=== PATIENT | female | born 1995 | race Caucasian/White ===

== ENCOUNTER 2017-07-07 05:15 | Emergency (ER) | payer MEDICAID ==
[~2017-07-07 05:15] MED LIST: PROV10TA PO
[2017-07-07 05:16] VITALS: BP 125/91; PULSE 111; RESP 20; TEMP 98.5; O2SAT 98
[2017-07-07] MEDS ORDERED: SODIUM CHLOR 0.9% 1000 ML INJ 1,000 ML IV ONE (05:28)
[2017-07-07] MEDS ORDERED: ONDANSETRON HCL 4 MG/2 ML VIAL IV ONE (05:30)
[2017-07-07] MEDS ORDERED: IBUPROFEN 600 MG TAB PO ONE (05:30)
--- NOTE | 2017-07-07 05:32 | PD ---
HPI Chief Complaint: General Weakness Time Seen by Provider: 05:28 Travel History International Travel<30 days: No Contact w/Intl Traveler<30days: No Traveled to known affect area: No History of Present Illness HPI 21-year-old female patient presents to the ER today with one-day history of nausea, vomiting, body aches, coughing, back pains, and fevers. She denies any diarrhea, shortness of breath, or other symptoms. She does not know any sick contacts. She denies any IV drug use or recent travel. Modifying Factors: None Associated Signs & Symptoms: Fevers, body aches, back pain, coughing, vomiting Risk Factors: None PFSH Past Medical History Asthma: Yes Developmental Delay: No Diminished Hearing: No Immunizations Current: Yes ?: Not LMP: 06/10/17 : 0 Past Surgical History Appendectomy: Yes Social History Alcohol Use: No Tobacco Use: No Substance Use: No Allergies-Medications (Allergen,Severity, Reaction): Coded Allergies: citric acid (Unverified Allergy, Severe, 06/24/17) diatrizoate meglumine (Unverified Allergy, Intermediate, 06/24/17) FEELS DIZZY AND VOMITS gadobenic acid (Unverified Allergy, Intermediate, 06/24/17) FEELS DIZZY AND VOMITS gadodiamide (Unverified Allergy, Intermediate, 06/24/17) FEELS DIZZY AND VOMITS gadoteridol (Unverified Allergy, Intermediate, 06/24/17) FEELS DIZZY AND VOMITS iodixanol (Unverified Allergy, Intermediate, 06/24/17) FEELS DIZZY AND VOMITS iohexol (Unverified Allergy, Intermediate, 06/24/17) FEELS DIZZY AND VOMITS Reported Meds & Prescriptions Reported Meds & Active Scripts Active Review of Systems Except as stated in HPI: all other systems reviewed are Neg Physical Exam Narrative GENERAL: Well-developed obese young female patient currently in moderate distress. Awake and oriented 3. SKIN: Focused skin assessment warm/dry. HEAD: Atraumatic. Normocephalic. EYES: Pupils equal and round. No scleral icterus. No injection or drainage. ENT: No nasal bleeding or discharge. Mucous membranes pink and moist. NECK: Trachea midline. No JVD. CARDIOVASCULAR: Regular rate and rhythm. No murmur appreciated. RESPIRATORY: No accessory muscle use. Clear to auscultation. Breath sounds equal bilaterally. GASTROINTESTINAL: Abdomen soft, non-tender, nondistended. Hepatic and splenic margins not palpable. MUSCULOSKELETAL: No obvious deformities. No clubbing. No cyanosis. No edema. NEUROLOGICAL: Awake and alert. No obvious cranial nerve deficits. Motor grossly within normal limits. Normal speech. PSYCHIATRIC: Appropriate mood and affect; insight and judgment normal. Data Data Last Documented VS Vital Signs Date Time Temp Pulse Resp B/P (MAP) Pulse Ox O2 Delivery O2 Flow Rate FiO2 07/07/17 05:36 98 20 117/56 (76) 99 Room Air 07/07/17 05:16 98.5 Orders Orders Complete Blood Count With Diff (07/07/17 05:28) Comprehensive Metabolic Panel (07/07/17 05:28) Lactic Acid Sepsis Protocol (07/07/17 05:28) Urinalysis - C+S If Indicated (07/07/17 05:28) Influenzae A/B Antigen (07/07/17 05:28) Blood Culture (07/07/17 05:28) Blood Glucose (07/07/17 05:28) Ecg Monitoring (07/07/17 05:28) Iv Access Insert/Monitor (07/07/17 05:28) Oximetry (07/07/17 05:28) Oxygen Administration (07/07/17 05:28) Ibuprofen (Motrin) (07/07/17 05:30) Ondansetron Inj (Zofran Inj) (07/07/17 05:30) Sodium Chlor 0.9% 1000 Ml Inj (Ns 1000 M (07/07/17 05:28) Creatine Kinase (Cpk) (07/07/17 05:28) C-Reactive Protein (Crp) (07/07/17 05:28) Westergren Sedimentation Rate (07/07/17 05:28) Ed Urine Pregnancytest Poc (07/07/17 05:28) Chest, Single Ap (07/07/17 05:32) Labs Laboratory Tests Test 07/07/17 05:35 07/07/17 06:30 White Blood Count 9.6 TH/MM3 Red Blood Count 4.65 MIL/MM3 Hemoglobin 12.0 GM/DL Hematocrit 36.2 % Mean Corpuscular Volume 77.9 FL Mean Corpuscular Hemoglobin 25.8 PG Mean Corpuscular Hemoglobin Concent 33.2 % Red Cell Distribution Width 14.8 % Platelet Count 226 TH/MM3 Mean Platelet Volume 8.0 FL Neutrophils (%) (Auto) 76.2 % Lymphocytes (%) (Auto) 11.2 % Monocytes (%) (Auto) 8.7 % Eosinophils (%) (Auto) 3.2 % Basophils (%) (Auto) 0.7 % Neutrophils # (Auto) 7.3 TH/MM3 Lymphocytes # (Auto) 1.1 TH/MM3 Monocytes # (Auto) 0.8 TH/MM3 Eosinophils # (Auto) 0.3 TH/MM3 Basophils # (Auto) 0.1 TH/MM3 CBC Comment DIFF FINAL Differential Comment Erythrocyte Sedimentation Rate 32 mm/hr Blood Urea Nitrogen 6 MG/DL Creatinine 0.78 MG/DL Random Glucose 84 MG/DL Total Protein 7.6 GM/DL Albumin 3.5 GM/DL Calcium Level 8.6 MG/DL Alkaline Phosphatase 62 U/L Aspartate Amino Transf (AST/SGOT) 18 U/L Alanine Aminotransferase (ALT/SGPT) 16 U/L Total Bilirubin 0.6 MG/DL Sodium Level 136 MEQ/L Potassium Level 4.0 MEQ/L Chloride Level 106 MEQ/L Carbon Dioxide Level 22.7 MEQ/L Anion Gap 7 MEQ/L Estimat Glomerular Filtration Rate 94 ML/MIN Lactic Acid Level 0.8 mmol/L Total Creatine Kinase 125 U/L C-Reactive Protein 1.59 MG/DL [facility] Medical Decision Making Medical Screen Exam Complete: Yes Emergency Medical Condition: Yes Medical Record Reviewed: Yes Interpretation(s) Laboratory Tests Test 07/07/17 05:35 07/07/17 06:30 Mean Corpuscular Volume 77.9 FL (80.0-100.0) Mean Corpuscular Hemoglobin 25.8 PG (27.0-34.0) Neutrophils (%) (Auto) 76.2 % (16.0-70.0) Monocytes (%) (Auto) 8.7 % (0.0-8.0) Erythrocyte Sedimentation Rate 32 mm/hr (0-20) Blood Urea Nitrogen 6 MG/DL (7-18) C-Reactive Protein 1.59 MG/DL (0.00-0.30) Differential Diagnosis Fevers, nausea, vomiting, body aches, coughviral syndrome versus influenza versus rhabdomyolysis versus dehydration versus metabolic issues versus sepsis Narrative Course Lab work did not show significant white blood cell count. Her lactate is normal. Patient is afebrile the ER. Influenza test was negative. Chest x-ray was unremarkable. And at this point, symptoms sound more like a viral syndrome. My plan would be to release her with follow-up to primary care doctor with symptomatic relief. Return for worsening in symptoms as necessary. The plan has been discussed with her and she states understanding. Diagnosis Primary Impression: Viral syndrome Med/Other Pt SpecificInfo: Prescription(s) given Scripts Ondansetron Odt (Zofran Odt) 4 Mg Tab 4 MG SL Q6HR Y for Nausea/Vomiting, #7 TAB 0 Refills Prov: Kevin Park MD 07/07/17 Ibuprofen (Motrin Ib) 200 Mg Tablet 600 MG PO QID Y for PAIN SCALE 1 TO 10, #20 Prov: Kevin Park MD 07/07/17 Disposition: 01 DISCHARGE HOME Condition: Stable Kevin Park MD Jul 07, 2017 05:32
[2017-07-07 05:36] VITALS: BP 117/56; PULSE 98; RESP 20; O2SAT 99
--- NOTE | 2017-07-07 06:03 | RADRPT ---
EXAM DATE/TIME: 07/07/2017 05:48 [facility] COMPARISON: CHEST SINGLE AP, October 12, 2014, 11:39. INDICATIONS : Chest pain. MEDICAL HISTORY : None. SURGICAL HISTORY : None. ENCOUNTER: Initial ACUITY: 1 day PAIN SCORE: 0/10 LOCATION: Bilateral chest FINDINGS: Portable AP view of the chest demonstrates a normal-sized cardiac silhouette. No effusion, consolidat ion, or pneumothorax is visualized. The bones and soft tissues demonstrate no acute abnormality. Lung s are underinflated. CONCLUSION: No acute cardiopulmonary abnormality is identified. Titus Zuleta MD on July 07, 2017 at 6:01 Board Certified Radiologist. This report was verified electronically.
[2017-07-07 06:04] LABS: AUTOMATED NEUTROPHIL # 7.3 TH/MM3 (1.8-7.7); BASOPHIL # 0.1 TH/MM3 (0-0.2); BASOPHIL % 0.7 % (0.0-2.0); EOSINOPHIL # 0.3 TH/MM3 (0-0.4); EOSINOPHIL % 3.2 % (0.0-4.0); HEMATOCRIT 36.2 % (35.0-46.0); HEMO FLAGS DIFF FINAL; LYMPH % 11.2 % (9.0-44.0); LYMPHOCYTE # 1.1 TH/MM3 (1.0-4.8); MEAN CELL VOLUME 77.9 FL (80.0-100.0); MEAN CORPUSCULAR HEMOGLOBIN 25.8 PG (27.0-34.0); MEAN CORPUSCULAR HGB CONC 33.2 % (32.0-36.0); MONO % 8.7 % (0.0-8.0); NEUT % 76.2 % (16.0-70.0); PLATELET COUNT 226 TH/MM3 (150-450); RED BLOOD COUNT 4.65 MIL/MM3 (4.00-5.30); RED CELL DISTRIBUTION WIDTH 14.8 % (11.6-17.2); WHITE BLOOD COUNT 9.6 TH/MM3 (4.0-11.0)
[2017-07-07 06:18] LABS: ALKALINE PHOSPHATASE 62 U/L (45-117); CREATINE KINASE 125 U/L (26-192); TOTAL BILIRUBIN ADULT 0.6 MG/DL (0.2-1.0)
[2017-07-07 06:29] LABS: ALT (GPT) 16 U/L (9-42); ANION GAP 7 MEQ/L (5-15); AST (GOT) 18 U/L (16-38); BICARBONATE 22.7 MEQ/L (21.0-32.0); BLOOD UREA NITROGEN 6 MG/DL (7-18); CHLORIDE 106 MEQ/L (98-107); GLOMERULAR FILTRATION RATE 94 ML/MIN (>89); SODIUM (NA) 136 MEQ/L (136-145)
[2017-07-07] MEDS ORDERED: IBUP-1129 PO (07:05)
[2017-07-07] MEDS ORDERED: ZOFR4TAB3 SL (07:05)
[2017-07-07 07:17] LABS: BLOOD, URINE TRACE (NEG); COMMENT (UR) CATH-CULT NOT IND; CULTURE IF INDICATED CATH CULTURE NOT IND; GLUCOSE,URINE NEG (NEG); KETONE, URINE NEG (NEG); MUCUS URINE FEW /lpf (OCC); NITRITE,URINE NEG (NEG); SQUAMOUS EPITHELIAL CELL URINE 2 /hpf (0-5); URINE COLOR LIGHT-YELLOW (YELLW/STRAW)
== END 2017-07-07 08:10 | disposition home or self-care (01) ==
LOC: NEPC 05:15
DX: B34.9 Viral infection, unspecified (principal); R11.2 Nausea with vomiting, unspecified; R50.9 Fever, unspecified
CPT/HCPCS: 71010; 80053; 81001; 82550; 83605; 84703; 85025; 85652; 86140; 87040; 87804; 96374; 99285; J2405; J7030